=== PATIENT | female | born 1975 | race African-American/Black ===

== ENCOUNTER 2018-10-11 09:09 | Emergency (ER) | payer MEDICAID, OTHER ==
[~2018-10-11] VITALS: Ht 177.8 cm; Wt 100.0 kg
[2018-10-11 10:30] LABS: HEMATOCRIT 36.7 % (36.0-48.0); HEMOGLOBIN 12.5 g/dL (12.0-16.0); MEAN CORPUSCULAR HEMOGLOBIN 29.3 pg (28.0-32.0); MEAN CORPUSCULAR VOLUME 85.9 fL (81.0-99.0); PLATELET 182 x1000/uL (130-400); RED BLOOD CELL COUNT 4.27 mill/uL (4.2-5.4); RED CELL DISTRIBUTION WIDTH 13.9 % (11.6-14.6)
[2018-10-11 10:38] LABS: CHLORIDE 108 mEq/L (98-107)
[2018-10-11 11:45] VITALS: BP 136/88
== END 2018-10-11 11:55 | disposition home or self-care (01) ==
LOC: ER 09:09
DX: R00.2 Palpitations (principal); K21.9 Gastro-esophageal reflux disease without esophagitis; Z90.710 Acquired absence of both cervix and uterus
CPT/HCPCS: 36415; 81025; 83735; 84443; 85027; 99283